=== PATIENT | male | born 1985 | race American Indian/Alaskan Native ===

== ENCOUNTER 2021-09-02 19:22 | Emergency (ER) | payer SELFPAY ==
[2021-09-02 19:28] VITALS: BP 127/77
[2021-09-02] MEDS ORDERED: IPRATROPIUM 0.02% NEBU 2.5 ML IH ONE (22:49)
[2021-09-02] MEDS ORDERED: ALBUTEROL 2.5 MG/3 ML NEBU IH ONE (22:49)
[2021-09-02] MEDS ORDERED: dexAMETHasone 4 MG/ML VIAL IM ONE (23:11)
--- NOTE | 2021-09-02 23:41 | XRay Report ---
CHEST 1 VIEW 09/02/2021 10:35 PM INDICATION / CLINICAL INFORMATION: Asthma. COMPARISON: None available. FINDINGS: SUPPORT DEVICES: None. HEART / MEDIASTINUM: No significant abnormality. LUNGS / PLEURA: No significant pulmonary or pleural abnormality. No pneumothorax. ADDITIONAL FINDINGS: No significant additional findings. IMPRESSION: 1. No acute findings. Signer Name: Howard Luna DO Signed: 09/02/2021 11:37 PM Workstation Name: [id number]
[2021-09-02 23:50] LABS: Basophils # (Auto) 0.1 K/mm3 (0.0-0.1); Eosinophils # (Auto) 0.7 K/mm3 (0.0-0.4); Eosinophils % (Auto) 7.9 % (0.0-4.3); Hematocrit 44.3 % (35.5-45.6); Hemoglobin 14.1 gm/dl (11.8-15.2); Lymphocytes # (Auto) 3.4 K/mm3 (1.2-5.4); Lymphocytes % (Auto) 38.6 % (13.4-35.0); Mean Corpuscular HGB Conc 32 % (32-34); Mean Corpuscular Volume 74 fl (84-94); Monocytes # (Auto) 0.5 K/mm3 (0.0-0.8); Monocytes % (Auto) 5.3 % (0.0-7.3); Platelet Count 367 K/mm3 (140-440); Red Blood Count 6.02 M/mm3 (3.65-5.03); Red Cell Distribution Width 16.4 % (13.2-15.2)
[2021-09-03 00:14] LABS: Alanine Aminotransferase 107 units/L (7-56); Albumin 4.2 g/dL (3.9-5); BUN/Creatinine Ratio 11; Blood Urea Nitrogen 10 mg/dL (9-20); Calcium 9.4 mg/dL (8.4-10.2); Hemolysis Index 9
--- NOTE | 2021-09-03 00:27 | Emergency Department Report ---
ED General Adult HPI - General Chief complaint: Adult Asthma Stated complaint: ASTHMA Time Seen by Provider: 09/02/21 22:58 Source: patient Mode of arrival: Ambulatory Limitations: No Limitations - History of Present Illness Initial comments: Pt reports asthma exacerbation and being out of meds today. Audible wheezing noted. Pt is [id number]. hasn;t got his rx of inhaler refilled -: days(s) Location: chest Associated Symptoms: cough. denies: denies other symptoms, confusion, chest pain Treatments Prior to Arrival: none - Related Data Allergies Allergy/AdvReac Type Severity Reaction Status Date / Time No Known Allergies Allergy Unverified 09/02/21 19:24 ED Review of Systems ROS: Stated complaint: ASTHMA Other details as noted in HPI Constitutional: denies: chills, fever Eyes: denies: eye pain, eye discharge, vision change ENT: denies: ear pain, throat pain Respiratory: denies: cough, shortness of breath, wheezing Cardiovascular: denies: chest pain, palpitations Endocrine: no symptoms reported Gastrointestinal: denies: abdominal pain, nausea, diarrhea Genitourinary: denies: urgency, dysuria Musculoskeletal: denies: back pain, joint swelling, arthralgia Skin: denies: rash, lesions Neurological: denies: headache, weakness, paresthesias Psychiatric: denies: anxiety, depression Hematological/Lymphatic: denies: easy bleeding, easy bruising ED Past Medical Hx - Past Medical History Previous Medical History?: Yes Hx Asthma: Yes - Surgical History Past Surgical History?: No - Social History Smoking Status: Never Smoker Substance Use Type: None ED Physical Exam - General Limitations: No Limitations General appearance: alert, in no apparent distress - Head Head exam: Present: atraumatic, normocephalic - Eye Eye exam: Present: normal appearance - ENT ENT exam: Present: mucous membranes moist - Neck Neck exam: Present: normal inspection - Respiratory Respiratory exam: Present: normal lung sounds bilaterally, wheezes. Absent: respiratory distress - Cardiovascular Cardiovascular Exam: Present: regular rate, normal rhythm. Absent: systolic murmur, diastolic murmur, rubs, gallop - GI/Abdominal GI/Abdominal exam: Present: soft, normal bowel sounds - Rectal Rectal exam: Present: deferred - Extremities Exam Extremities exam: Present: normal inspection - Back Exam Back exam: Present: normal inspection - Neurological Exam Neurological exam: Present: alert, oriented X3 - Psychiatric Psychiatric exam: Present: normal affect, normal mood - Skin Skin exam: Present: warm, dry, intact, normal color. Absent: rash ED Course Vital Signs 09/02/21 09/03/21 19:24 00:00 Temperature 98.4 F Pulse Rate 87 Pulse Rate [ 93 H Bilateral Throughout] Respiratory 18 Rate Respiratory 21 Rate [Bilateral Throughout] Blood Pressure 127/77 O2 Sat by Pulse 98 Oximetry ED Medical Decision Making - Lab Data Result diagrams: 09/02/21 23:29 09/02/21 23:29 Critical care attestation.: If time is entered above; I have spent that time in minutes in the direct care of this critically ill patient, excluding procedure time. ED Disposition Clinical Impression: Asthma exacerbation Disposition: 01 HOME / SELF CARE / HOMELESS Is pt being admited?: No Does the pt Need Aspirin: No Condition: Stable Instructions: Asthma, Adult
== END 2021-09-04 09:15 | disposition home or self-care (01) ==
LOC: ED 19:22
DX: J45.901 Unspecified asthma with (acute) exacerbation (principal)
CPT/HCPCS: 36415; 71045; 80053; 84484; 85025; 94640; 94644; 99283

== ENCOUNTER 2021-09-27 08:21 | Emergency (ER) | payer SELFPAY ==
[2021-09-27 08:29] VITALS: BP 113/74
--- NOTE | 2021-09-27 12:32 | Emergency Department Report ---
ED Recheck HPI - General Chief Complaint: Medical Clearance Stated Complaint: NEEDS ASTHMA PUMP REFILL Time Seen by Provider: 09/27/21 12:30 Source: patient Mode of arrival: Ambulatory Limitations: No Limitations - History of Present Illness Initial Comments: 36-year-old comes to the emergency room with asthma exacerbation requesting a albuterol refill. He has insurance and they are male ordering with a chest not arrived, per the patient. No purulent sputum. Vital signs are stable. No fever or chills MD Complaint: medication refill request - Related Data Previous Rx's Medication Instructions Recorded Last Taken Type Albuterol Mdi (or & Nicu Only) 2 puff IH QID PRN #8.5 gram 09/03/21 Unknown Rx [ProAir HFA Inhaler] methylPREDNISolone [Medrol 4MG 4 mg PO DAILY #1 09/03/21 Unknown Rx DOSEPAK (21 tabs)] Albuterol Mdi (or & Nicu Only) 2 puff IH QID PRN #1 inhalation 09/27/21 Unknown Rx [ProAir HFA Inhaler] Allergies Allergy/AdvReac Type Severity Reaction Status Date / Time No Known Allergies Allergy Unverified 09/02/21 19:24 ED Review of Systems ROS: Stated complaint: NEEDS ASTHMA PUMP REFILL Other details as noted in HPI Comment: All other systems reviewed and negative ED Past Medical Hx - Past Medical History Previous Medical History?: Yes Hx Asthma: Yes - Surgical History Past Surgical History?: No - Family History Family history: no significant - Social History Smoking Status: Never Smoker Substance Use Type: None - Medications Home Medications: Home Medications Medication Instructions Recorded Confirmed Last Taken Type Albuterol Mdi (or & Nicu Only) 2 puff IH QID PRN #8.5 gram 09/03/21 Unknown Rx [ProAir HFA Inhaler] methylPREDNISolone [Medrol 4MG 4 mg PO DAILY #1 09/03/21 Unknown Rx DOSEPAK (21 tabs)] Albuterol Mdi (or & Nicu Only) 2 puff IH QID PRN #1 inhalation 09/27/21 Unknown Rx [ProAir HFA Inhaler] ED Physical Exam - General Limitations: No Limitations General appearance: alert, in no apparent distress - Head Head exam: Present: atraumatic, normocephalic - Eye Eye exam: Present: normal appearance - ENT ENT exam: Present: mucous membranes moist - Neck Neck exam: Present: normal inspection - Respiratory Respiratory exam: Present: normal lung sounds bilaterally. Absent: respiratory distress - Cardiovascular Cardiovascular Exam: Present: regular rate, normal rhythm. Absent: systolic murmur, diastolic murmur, rubs, gallop - GI/Abdominal GI/Abdominal exam: Present: soft, normal bowel sounds - Rectal Rectal exam: Present: deferred - Extremities Exam Extremities exam: Present: normal inspection - Back Exam Back exam: Present: normal inspection - Neurological Exam Neurological exam: Present: alert, oriented X3 - Psychiatric Psychiatric exam: Present: normal affect, normal mood - Skin Skin exam: Present: warm, dry, intact, normal color. Absent: rash ED Course Vital Signs 09/27/21 08:25 Temperature 98.5 F Pulse Rate 68 Respiratory 14 Rate Blood Pressure 113/74 O2 Sat by Pulse 99 Oximetry ED Recheck MDM - Core Measures Measure Exclusions: not indicated - Differential Diagnosis Prescription Refill(s) - Medical Decision Making Patient given albuterol MDI inhaler. I have educated him that he cannot come to the ER for these things he needs to see primary care. He has been given a referral. He verbalizes understanding. Vital Signs 09/27/21 08:25 Temperature 98.5 F Pulse Rate 68 Respiratory 14 Rate Blood Pressure 113/74 O2 Sat by Pulse 99 Oximetry Critical care attestation.: If time is entered above; I have spent that time in minutes in the direct care of this critically ill patient, excluding procedure time. ED Disposition Clinical Impression: Medication refill, Asthma with acute exacerbation Disposition: HOME / SELF CARE / HOMELESS Is pt being admited?: No Does the pt Need Aspirin: No Condition: Stable Prescriptions: Albuterol Mdi (or & Nicu Only) [ProAir HFA Inhaler] 2 puff IH QID PRN #1 inhalation PRN Reason: Shortness Of Breath Referrals: HUNG ESPINO MD [Primary Care Provider] - 3-5 Days Forms: Work/School Release Form(ED) Time of Disposition: 12:31
== END 2021-09-27 12:50 | disposition home or self-care (01) ==
LOC: ED 08:21
DX: J45.901 Unspecified asthma with (acute) exacerbation (principal)
CPT/HCPCS: 99282

== ENCOUNTER 2021-10-07 13:13 | Emergency (ER) | payer SELFPAY ==
[2021-10-07 13:17] VITALS: BP 136/77
--- NOTE | 2021-10-07 17:08 | Emergency Department Report ---
ED Medical Clearance HPI - General Chief complaint: Medical Clearance Stated complaint: ASTHMA Time Seen by Provider: 10/07/21 17:02 Source: patient Mode of arrival: Ambulatory Limitations: No Limitations - History of Present Illness Initial comments: 36-year-old male history of asthma presents to the emergency department for refill of his asthma medications. Patient reports he ran out of his albuterol inhaler and nebulizer as well as Advair. Has no primary care provider, has no medical complaints. No wheezing no shortness of breath no cough cold congestion no fever chills headache, dizziness, chest pain, nausea vomiting abdominal pain related steadily to the emergency department Reason for Medical Clearance: other (Medication review) Home medications: Previous Rx's Medication Instructions Recorded Last Taken Type methylPREDNISolone [Medrol 4MG 4 mg PO DAILY #1 09/03/21 Unknown Rx DOSEPAK (21 tabs)] Albuterol Mdi (or & Nicu Only) 2 puff IH QID PRN #1 inhalation 09/27/21 Unknown Rx [ProAir HFA Inhaler] Albuterol Mdi (or & Nicu Only) 2 puff IH QID PRN #8.5 gram 10/07/21 Unknown Rx [ProAir HFA Inhaler] Albuterol Sulfate [Albuterol 0.63% 0.63 mg IH TID PRN #90 ml 10/07/21 Unknown Rx NEBS] Fluticasone/Salmeterol [Advair 1 each IH DAILY #1 10/07/21 Unknown Rx 250-50 Diskus] Allergies/Adverse reactions: Allergies Allergy/AdvReac Type Severity Reaction Status Date / Time No Known Allergies Allergy Verified 10/07/21 13:18 ED Review of Systems ROS: Stated complaint: ASTHMA Other details as noted in HPI Comment: All other systems reviewed and negative ED Past Medical Hx - Past Medical History Previous Medical History?: Yes Hx Asthma: Yes - Social History Smoking Status: Never Smoker - Medications Home Medications: Home Medications Medication Instructions Recorded Confirmed Last Taken Type methylPREDNISolone [Medrol 4MG 4 mg PO DAILY #1 09/03/21 Unknown Rx DOSEPAK (21 tabs)] Albuterol Mdi (or & Nicu Only) 2 puff IH QID PRN #1 inhalation 09/27/21 Unknown Rx [ProAir HFA Inhaler] Albuterol Mdi (or & Nicu Only) 2 puff IH QID PRN #8.5 gram 10/07/21 Unknown Rx [ProAir HFA Inhaler] Albuterol Sulfate [Albuterol 0.63% 0.63 mg IH TID PRN #90 ml 10/07/21 Unknown Rx NEBS] Fluticasone/Salmeterol [Advair 1 each IH DAILY #1 10/07/21 Unknown Rx 250-50 Diskus] ED Physical Exam - General Limitations: No Limitations General appearance: alert, in no apparent distress - Head Head exam: Present: atraumatic - Eye Eye exam: Present: normal appearance - ENT ENT exam: Present: normal exam, normal orophraynx - Neck Neck exam: Present: normal inspection. Absent: tenderness - Respiratory Respiratory exam: Present: normal lung sounds bilaterally. Absent: respiratory distress, wheezes - Cardiovascular Cardiovascular Exam: Present: regular rate, normal rhythm - GI/Abdominal GI/Abdominal exam: Present: soft. Absent: distended, tenderness, guarding ED Course Vital Signs 10/07/21 13:15 Temperature 98 F Pulse Rate 88 Respiratory 18 Rate Blood Pressure 136/77 O2 Sat by Pulse 96 Oximetry ED Medical Decision Making - Medical Decision Making 6-year-old male history of asthma presents to the emergency department for refill of his asthma medications. Patient reports he ran out of his albuterol inhaler and nebulizer as well as Advair. Has no primary care provider, has no medical complaints. 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 His medications have been refilled and have also referred him to PCP for further evaluation with understanding ED Disposition Clinical Impression: Medication refill, Asthma Disposition: 01 HOME / SELF CARE / HOMELESS Is pt being admited?: No Does the pt Need Aspirin: No Condition: Stable Instructions: Asthma (ED), Asthma, Adult Prescriptions: Fluticasone/Salmeterol [Advair 250-50 Diskus] 1 each IH DAILY #1 Albuterol Sulfate [Albuterol 0.63% NEBS] 0.63 mg IH TID PRN #90 ml PRN Reason: Wheezing Albuterol Mdi (or & Nicu Only) [ProAir HFA Inhaler] 2 puff IH QID PRN #8.5 gram PRN Reason: Shortness Of Breath
== END 2021-10-07 17:25 | disposition home or self-care (01) ==
LOC: ED 13:13
DX: J45.909 Unspecified asthma, uncomplicated (principal); Z76.0 Encounter for issue of repeat prescription
CPT/HCPCS: 99282

== ENCOUNTER 2021-10-19 21:38 | Emergency (ER) | payer SELFPAY ==
[2021-10-19 21:46] VITALS: BP 128/77
[2021-10-19] MEDS ORDERED: predniSONE 50 MG TAB PO ONE (22:38)
--- NOTE | 2021-10-19 22:42 | Emergency Department Report ---
ED Shortness of Breath HPI - General Chief Complaint: Adult Asthma Stated Complaint: KAIDEN Time Seen by Provider: 10/19/21 22:35 Source: patient Mode of arrival: Ambulatory Limitations: No Limitations - History of Present Illness Initial Comments: 36-year-old -[place] male with past medical history of asthma says 30 minutes ago became shortness of breath and wheezing and did not have his inhaler. denies having any fever chills. Denies having any chest pain. MD Complaint: shortness of breath, cough -: Gradual, minutes(s) Severity: moderate Consistency: constant Improves With: oxygen, bronchodilators Worsens With: nothing, exertion Known History Of: asthma Associated Symptoms: denies other symptoms Treatments Prior to Arrival: none - Related Data Home Oxygen Therapy: No Previous Rx's Medication Instructions Recorded Last Taken Type methylPREDNISolone [Medrol 4MG 4 mg PO DAILY #1 09/03/21 Unknown Rx DOSEPAK (21 tabs)] Albuterol Mdi (or & Nicu Only) 2 puff IH QID PRN #1 inhalation 09/27/21 Unknown Rx [ProAir HFA Inhaler] Albuterol Mdi (or & Nicu Only) 2 puff IH QID PRN #8.5 gram 10/07/21 Unknown Rx [ProAir HFA Inhaler] Albuterol Sulfate [Albuterol 0.63% 0.63 mg IH TID PRN #90 ml 10/19/21 Unknown Rx NEBS] Fluticasone/Salmeterol [Advair 1 each IH DAILY #1 10/19/21 Unknown Rx Diskus 250-50 mcg] predniSONE [Deltasone] 50 mg PO QDAY 7 Days #7 tab 10/19/21 Unknown Rx Albuterol Mdi (or & Nicu Only) 1 puff IH Q8H PRN #8.5 gram 10/20/21 Unknown Rx [ProAir HFA Inhaler] Allergies Allergy/AdvReac Type Severity Reaction Status Date / Time No Known Allergies Allergy Verified 10/07/21 13:18 ED Review of Systems ROS: Stated complaint: KAIDEN Other details as noted in HPI ED Past Medical Hx - Past Medical History Hx Asthma: Yes - Social History Smoking Status: Never Smoker - Medications Home Medications: Home Medications Medication Instructions Recorded Confirmed Last Taken Type methylPREDNISolone [Medrol 4MG 4 mg PO DAILY #1 09/03/21 Unknown Rx DOSEPAK (21 tabs)] Albuterol Mdi (or & Nicu Only) 2 puff IH QID PRN #1 inhalation 09/27/21 Unknown Rx [ProAir HFA Inhaler] Albuterol Mdi (or & Nicu Only) 2 puff IH QID PRN #8.5 gram 10/07/21 Unknown Rx [ProAir HFA Inhaler] Albuterol Sulfate [Albuterol 0.63% 0.63 mg IH TID PRN #90 ml 10/19/21 Unknown Rx NEBS] Fluticasone/Salmeterol [Advair 1 each IH DAILY #1 10/19/21 Unknown Rx Diskus 250-50 mcg] predniSONE [Deltasone] 50 mg PO QDAY 7 Days #7 tab 10/19/21 Unknown Rx Albuterol Mdi (or & Nicu Only) 1 puff IH Q8H PRN #8.5 gram 10/20/21 Unknown Rx [ProAir HFA Inhaler] ED Physical Exam - General Limitations: No Limitations General appearance: alert, anxious, in distress (Mild) - Eye Eye exam: Present: normal appearance, PERRL, EOMI Pupils: Present: normal accommodation - ENT ENT exam: Present: normal exam, normal orophraynx - Neck Neck exam: Present: normal inspection - Respiratory Respiratory exam: Present: wheezes - Cardiovascular Cardiovascular Exam: Present: regular rate, normal rhythm - GI/Abdominal GI/Abdominal exam: Present: soft. Absent: distended, tenderness, guarding - exam: Present: normal inspection - Extremities Exam Extremities exam: Present: normal inspection - Back Exam Back exam: Present: normal inspection, full ROM - Neurological Exam Neurological exam: Present: alert, oriented X3, CN II-XII intact, normal gait - Psychiatric Psychiatric exam: Present: normal affect - Skin Skin exam: Present: warm, dry ED Course Vital Signs 10/19/21 10/19/21 21:44 23:26 Temperature 98.1 F Pulse Rate 83 Pulse Rate [ 87 Throughout] Respiratory 18 Rate Respiratory 12 Rate [ Throughout] Blood Pressure 128/77 O2 Sat by Pulse 97 Oximetry Critical care attestation.: If time is entered above; I have spent that time in minutes in the direct care of this critically ill patient, excluding procedure time. ED Disposition Clinical Impression: Asthma Qualifiers: Asthma severity: unspecified severity Asthma persistence: unspecified Asthma complication type: unspecified Qualified Code(s): J45.909 - Unspecified asthma, uncomplicated Asthma exacerbation Qualifiers: Asthma severity: unspecified severity Asthma persistence: unspecified Qualified Code(s): J45.901 - Unspecified asthma with (acute) exacerbation Disposition: 01 HOME / SELF CARE / HOMELESS Is pt being admited?: No Does the pt Need Aspirin: No Condition: Good Instructions: Asthma, Adult, Asthma, Adult, [id number], Asthma (ED) Prescriptions: Fluticasone/Salmeterol [Advair Diskus 250-50 mcg] 1 each IH DAILY #1 Albuterol Sulfate [Albuterol 0.63% NEBS] 0.63 mg IH TID PRN #90 ml PRN Reason: Wheezing predniSONE [Deltasone] 50 mg PO QDAY 7 Days #7 tab Albuterol Mdi (or & Nicu Only) [ProAir HFA Inhaler] 1 puff IH Q8H PRN #8.5 gram PRN Reason: Wheezing Referrals: PRIMARY CARE,MD [Primary Care Provider] - 3-5 Days
[2021-10-19] MEDS: IPRATROPIUM/ALBUTEROL SULFATE 3 ML AMPUL.NEB IH ONE ×2 (22:52→23:24)
== END 2021-10-20 00:37 | disposition home or self-care (01) ==
LOC: ED 21:38
DX: J45.901 Unspecified asthma with (acute) exacerbation (principal); Z53.21 Procedure and treatment not carried out due to patient leaving prior to being seen by health care provider
CPT/HCPCS: 94640; 99282; J7512; 94644

== ENCOUNTER 2021-11-11 17:27 | Emergency (ER) | payer SELFPAY ==
[2021-11-11 18:33] VITALS: BP 127/80
--- NOTE | 2021-11-11 22:57 | Emergency Department Report ---
ED General Adult HPI - General Chief complaint: Medical Clearance Stated complaint: ASTHMA ISSUES Source: patient Mode of arrival: Ambulatory Limitations: No Limitations - History of Present Illness Initial comments: Patient is a 36-year-old male with a history of asthma who presents to the ED for medication refill of his asthma medications including albuterol nebulizer, albuterol inhaler, prednisone and Singulair after he ran out of his medications 2 days ago. Patient states that he has not had any recent asthma attacks in the last 1 week. Patient denies headache, chest pain, shortness of breath, sore throat, nasal and sinus congestion, nausea and vomiting, diarrhea, fever and chills, palpitations or abdominal pain. MD Complaint: medical refill, asthmatic, no dyspnea -: Gradual, days(s) (2) Location: chest Radiation: non-radiation Severity scale (0 -10): 0 Quality: dull Consistency: intermittent Improves with: none Worsens with: none Associated Symptoms: denies other symptoms. denies: confusion, cough, diaphoresis, fever/chills, headaches, loss of appetite, malaise, nausea/vomiting, rash, seizure, shortness of breath, syncope, weakness Treatments Prior to Arrival: none - Related Data Previous Rx's Medication Instructions Recorded Last Taken Type methylPREDNISolone [Medrol 4MG 4 mg PO DAILY #1 09/03/21 Unknown Rx DOSEPAK (21 tabs)] Albuterol Mdi (or & Nicu Only) 2 puff IH QID PRN #8.5 gram 10/07/21 Unknown Rx [ProAir HFA Inhaler] Albuterol Mdi (or & Nicu Only) 1 puff IH Q8H PRN #8.5 gram 10/20/21 Unknown Rx [ProAir HFA Inhaler] Albuterol Mdi (or & Nicu Only) 2 puff IH QID PRN #1 inhalation 11/11/21 Unknown Rx [ProAir HFA Inhaler] Albuterol Sulfate [Albuterol 0.63% 0.63 mg IH TID PRN #90 ml 11/11/21 Unknown Rx NEBS] Fluticasone/Salmeterol [Advair 1 each IH DAILY #1 11/11/21 Unknown Rx Diskus 250-50 mcg] Montelukast [Singulair] 10 mg PO QPM #30 tablet 11/11/21 Unknown Rx predniSONE [Deltasone] 50 mg PO QDAY 7 Days #7 tab 11/11/21 Unknown Rx Allergies Allergy/AdvReac Type Severity Reaction Status Date / Time No Known Allergies Allergy Verified 10/07/21 13:18 ED Review of Systems ROS: Stated complaint: ASTHMA ISSUES Other details as noted in HPI Constitutional: denies: chills, fever Eyes: denies: eye pain, eye discharge, vision change ENT: denies: ear pain, throat pain, dental pain, hearing loss, congestion, other Respiratory: denies: cough, shortness of breath, wheezing Cardiovascular: denies: chest pain, palpitations, edema, syncope, paroxysmal nocturnal dyspnea Endocrine: no symptoms reported Gastrointestinal: denies: abdominal pain, nausea, vomiting, diarrhea Genitourinary: denies: urgency, dysuria Musculoskeletal: denies: back pain, joint swelling, arthralgia Skin: denies: rash, lesions Neurological: denies: headache, weakness, paresthesias Psychiatric: denies: anxiety, depression Hematological/Lymphatic: denies: easy bleeding, easy bruising ED Past Medical Hx - Past Medical History Hx Asthma: Yes - Social History Smoking Status: Never Smoker - Medications Home Medications: Home Medications Medication Instructions Recorded Confirmed Last Taken Type methylPREDNISolone [Medrol 4MG 4 mg PO DAILY #1 09/03/21 Unknown Rx DOSEPAK (21 tabs)] Albuterol Mdi (or & Nicu Only) 2 puff IH QID PRN #8.5 gram 10/07/21 Unknown Rx [ProAir HFA Inhaler] Albuterol Mdi (or & Nicu Only) 1 puff IH Q8H PRN #8.5 gram 10/20/21 Unknown Rx [ProAir HFA Inhaler] Albuterol Mdi (or & Nicu Only) 2 puff IH QID PRN #1 inhalation 11/11/21 Unknown Rx [ProAir HFA Inhaler] Albuterol Sulfate [Albuterol 0.63% 0.63 mg IH TID PRN #90 ml 11/11/21 Unknown Rx NEBS] Fluticasone/Salmeterol [Advair 1 each IH DAILY #1 11/11/21 Unknown Rx Diskus 250-50 mcg] Montelukast [Singulair] 10 mg PO QPM #30 tablet 11/11/21 Unknown Rx predniSONE [Deltasone] 50 mg PO QDAY 7 Days #7 tab 11/11/21 Unknown Rx ED Physical Exam - General Limitations: No Limitations General appearance: alert, in no apparent distress - Head Head exam: Present: atraumatic, normocephalic, normal inspection - Eye Eye exam: Present: normal appearance, PERRL, EOMI Pupils: Present: normal accommodation - ENT ENT exam: Present: normal exam, normal orophraynx, mucous membranes moist, TM's normal bilaterally, normal external ear exam - Neck Neck exam: Present: normal inspection, full ROM. Absent: tenderness - Respiratory Respiratory exam: Present: normal lung sounds bilaterally. Absent: respiratory distress, wheezes, rales, rhonchi, chest wall tenderness, accessory muscle use, decreased breath sounds, prolonged expiratory - Cardiovascular Cardiovascular Exam: Present: regular rate, normal rhythm, normal heart sounds. Absent: systolic murmur, diastolic murmur, rubs, gallop - GI/Abdominal GI/Abdominal exam: Present: soft, normal bowel sounds. Absent: tenderness, guarding, rebound, hyperactive bowel sounds, hypoactive bowel sounds, organomegaly, mass - Extremities Exam Extremities exam: Present: normal inspection, full ROM, normal capillary refill. Absent: tenderness, pedal edema, joint swelling - Back Exam Back exam: Present: normal inspection, full ROM. Absent: tenderness, CVA tenderness (R), CVA tenderness (L), muscle spasm, vertebral tenderness - Neurological Exam Neurological exam: Present: alert, oriented X3, CN II-XII intact, normal gait, reflexes normal - Psychiatric Psychiatric exam: Present: normal affect, normal mood - Skin Skin exam: Present: warm, dry, intact, normal color. Absent: rash ED Course Vital Signs 11/11/21 18:30 Temperature 97.7 F Pulse Rate 76 Respiratory 18 Rate Blood Pressure 127/80 [Right] O2 Sat by Pulse 99 Oximetry ED Medical Decision Making - Medical Decision Making This is a 36-year-old male with a history of asthma who presents to the ED for medication refill of his asthma medications including albuterol nebulizer, albuterol inhaler, prednisone and Singulair after he ran out of his medications 2 days ago. Patient states that he has not had any recent asthma attacks in the last 1 week. In the ED, patient is alert and oriented x3 and is not in any distress. Patient is hemodynamically stable. Patient was discharged home on medications and advised to follow-up with his primary care physician in 7 to 10 days for reevaluation or return to the ED immediately if symptoms get worse. - Differential Diagnosis Medication refill; asthma; bronchitis; URI; Critical care attestation.: If time is entered above; I have spent that time in minutes in the direct care of this critically ill patient, excluding procedure time. ED Disposition Clinical Impression: Medication refill, Chronic asthmatic bronchitis Disposition: HOME / SELF CARE / HOMELESS Is pt being admited?: No Does the pt Need Aspirin: No Condition: Stable Instructions: Chronic Bronchitis (ED), Asthma, Adult, [id number], Cough, Adult, [id number] Additional Instructions: Take your regular medications, follow-up with your primary care physician in 7 to 10 days for reevaluation. Return to the ED immediately if symptoms get worse Prescriptions: Fluticasone/Salmeterol [Advair Diskus 250-50 mcg] 1 each IH DAILY #1 Albuterol Sulfate [Albuterol 0.63% NEBS] 0.63 mg IH TID PRN #90 ml PRN Reason: Wheezing predniSONE [Deltasone] 50 mg PO QDAY 7 Days #7 tab Albuterol Mdi (or & Nicu Only) [ProAir HFA Inhaler] 2 puff IH QID PRN #1 inhalation PRN Reason: Shortness Of Breath Montelukast [Singulair] 10 mg PO QPM #30 tablet Referrals: [facility] [Provider Group] - 7-10 days Time of Disposition: 22:59 Print Language: TAJIK
== END 2021-11-11 23:35 | disposition home or self-care (01) ==
LOC: ED 17:27
DX: J42 Unspecified chronic bronchitis (principal); Z76.0 Encounter for issue of repeat prescription
CPT/HCPCS: 99282